=== PATIENT | female | born 1960 | race Caucasian/White ===

== ENCOUNTER 2017-07-29 13:23 | Outpatient (CLI) | payer OTHER | END 2017-07-29 13:24 | disposition home or self-care (01) | LOC: BICMAMMO 13:23 | PROVIDERS: ATTEND Family Medicine | DX: N64.52 Nipple discharge (principal); R92.1 Mammographic calcification found on diagnostic imaging of breast | CPT/HCPCS: G0279 ==

== ENCOUNTER 2017-12-17 15:15 | Outpatient (CLI) | payer OTHER ==
[2017-12-17 16:24] LABS: #Eosinphils 0.1 thou/uL (0.0-0.7); #Monocytes 0.5 thou/uL (0.11-0.59); #Neutrophils 5.2 thou/uL (1.40-6.50); %Basophils 0.3 % (0.0-1.0); %Eosinophils 1.9 % (0.0-10.0); %Lymphocytes 25.7 % (21.0-51.0); %Neutrophils 66.1 % (42.0-75.0); Mean Corpuscular HGB CONC 33.7 g/dL (32.0-36.0); Mean Corpuscular Volume 85.9 fL (78.0-98.0); Mean Platelet Volume 7.2 fL (7.4-10.4); Platelet Count 446 thou/uL (130-400); Red Blood Cell (RBC) Count 4.83 mill/uL (4.20-5.40); White Blood Cell (WBC) Count 7.9 thou/uL (4.8-10.8)
[2017-12-17 16:44] LABS: Anion Gap 14 mmol/L (10-20); BUN (Urea Nitrogen) 15 mg/dL (9.8-20.1); Calc. Creatinine Clearance 0 mL/min (70-130); Calcium 10.1 mg/dL (7.8-10.44); Carbon Dioxide 25 mmol/L (22-29); Chloride 104 mmol/L (98-107); Estimated GFR-MDRD 80; Glucose 108 mg/dL (70-105); Potassium 4.3 mmol/L (3.5-5.1); Sodium 139 mmol/L (136-145)
== END 2017-12-17 15:16 | disposition home or self-care (01) ==
LOC: LABBT 15:15
PROVIDERS: ATTEND Specialist
DX: Z01.812 Encounter for preprocedural laboratory examination (principal); N64.52 Nipple discharge
CPT/HCPCS: 80048; 85025; 93005; 93010

== ENCOUNTER 2017-12-18 06:34 | Day surgery (SDC) | payer OTHER ==
[2017-12-17 15:41] VITALS: BMI 32.2
[2017-12-18] MEDS ORDERED: CEFAZOLIN/Water 2 GM/20 ML SYRINGE ONE (07:17)
[2017-12-18] MEDS ORDERED: Ketorolac Tromethamine 30 MG/ML VIAL ONE (07:17)
[2017-12-18] MEDS ORDERED: Bupivacaine/Epinephrine 0.25% 30 ML VIAL ONE (08:38)
[2017-12-18] MEDS ORDERED: Fentanyl 100 MCG/2 ML VIAL ONE (08:40)
[2017-12-18] MEDS ORDERED: HYDROcodone/Acetaminophen 5/325 mg Tablet ONE (11:09)
[2017-12-18] MEDS ORDERED: PROPOFOL 200 MG/20 ML VIAL ONE (14:11)
--- NOTE | 2017-12-19 10:18 | OP ---
DATE OF PROCEDURE: 12/18/2017 PREOPERATIVE DIAGNOSIS: Persistent left breast nipple discharge. POSTOPERATIVE DIAGNOSIS: Persistent left breast nipple discharge. PROCEDURE PERFORMED: Left breast ductal excision. SURGEON: Anthony Henriquez M.D. ANESTHESIA: General with laryngeal mask airway. INDICATIONS: The patient is a 57-year-old white female. She presents with a long history of persist ent left nipple discharge. After undergoing appropriate period of observation, she has elected to pr oceed with ductal excision to evaluate for the source of this as well as to stop the persistent disch arge. PROCEDURE IN DETAIL: Informed consent was obtained. The patient was taken to the operating room whe re general anesthesia was obtained with the patient in supine position. The left breast was prepped with ChloraPrep and draped in sterile fashion. Gentle pressure around the nipple produced discharge from an obvious duct at about the 12 o'clock radian of the nipple. This was visualized and cannulate d with an Angiocath and infiltrated with a small amount of dilute methylene blue. A lacrimal duct probe was then placed within the same duct, but it could not be advanced more than a centimeter or two. A curvilinear periareolar incision was created at the superior aspect of the areo la. Dissection was carried through skin and subcutaneous tissue. Dissection was then carried superi chavo to identify the ductal tissue at the posterior aspect of the nipple. I was able to identify and clamp the tissue into which the lacrimal duct probe entered. I then dissected this down into the br east and removed a conical shape segment of tissue at the superior aspect of the nipple as it extende d into the breast. This was tagged for orientation and submitted to pathology. I then dissected up underneath the nipple to identify the duct. As this was dissected up, a small we dge of nipple skin was removed in continuity with the duct. The separate specimen was submitted as w ell. Meticulous hemostasis was obtained within the wound. Additional local anesthetic was infiltrated. T he skin defect in the nipple was closed with a series of interrupted sutures of 4-0 Monocryl. The ex cisional wound was then closed in layers with 3-0 and 4-0 Monocryl. Dermabond was placed both over t he nipple and the skin incision. There were no complications. Blood loss was negligible. The patie nt tolerated the procedure well and was taken to recovery room in stable condition.
== END 2017-12-18 12:04 | disposition home or self-care (01) ==
LOC: SDC 06:34
PROVIDERS: ATTEND Specialist
PROC: 0HBU0ZX Excision of Left Breast, Open Approach, Diagnostic (ICD-10-PCS; principal; 2017-12-18)
DX: N60.32 Fibrosclerosis of left breast (principal); E11.9 Type 2 diabetes mellitus without complications; Z79.82 Long term (current) use of aspirin; Z79.84 Long term (current) use of oral hypoglycemic drugs; Z79.899 Other long term (current) drug therapy; Z91.048 Other nonmedicinal substance allergy status
CPT/HCPCS: 80048; 85025; 88305; 88307; 93005; 93010; J0131; J1885; J2704; J3010; Q9968

== ENCOUNTER 2018-09-08 15:10 | Outpatient (CLI) | payer OTHER ==
--- NOTE | 2018-09-08 16:28 | MMO ---
Bilateral MAMMO Bilat Screen [facility]. CLINICAL HISTORY: Patient is 58 years old and is seen for screening. The patient has no family history of breast cancer. The patient has no personal history of cancer. VIEWS: The views performed were: bilateral craniocaudal with tomosynthesis and bilateral mediolateral oblique with tomosynthesis. FILMS COMPARED: The present examination has been compared to prior imaging studies performed at [facility] on 11/18/2014, 12/01/2015, 12/09/2016 and 07/29/2017. MAMMOGRAM FINDINGS: The breasts are almost entirely fat. There are no suspicious masses, calcifications or areas of architectural distortion. There are benign appearing calcifications in the right breast. There are no suspicious masses, suspicious calcifications, or new areas of architectural distortion. IMPRESSION: THERE IS NO MAMMOGRAPHIC EVIDENCE OF MALIGNANCY. A ROUTINE FOLLOW-UP MAMMOGRAM IN 1 YEAR IS RECOMMENDED. THE RESULTS OF THIS EXAM WERE SENT TO THE PATIENT. ACR BI-RADS Category 2 - Benign finding MAMMOGRAPHY NOTE: 1. A negative mammogram report should not delay a biopsy if a dominant of clinically suspicious mass is present. 2. Approximately 10% to 15% of breast cancers are not detected by mammography. 3. Adenosis and dense breasts may obscure an underlying neoplasm.
== END 2018-09-08 15:11 | disposition home or self-care (01) ==
LOC: BICMAMMO 15:10
PROVIDERS: ATTEND Specialist
DX: Z12.31 Encounter for screening mammogram for malignant neoplasm of breast (principal)
CPT/HCPCS: 77063; 77067

== ENCOUNTER 2020-02-24 14:07 | Outpatient (CLI) | payer OTHER ==
--- NOTE | 2020-02-24 15:46 | MMO ---
Bilateral MAMMO Bilat Screen [facility]. CLINICAL HISTORY: Patient is 59 years old and is seen for screening. The patient has no family history of breast cancer. The patient has no personal history of cancer. The patient has a history of left needle biopsy in 2019 - benign and left OTHER in 2018 - DUCTAL INCISION. VIEWS: The views performed were: bilateral craniocaudal with tomosynthesis and bilateral mediolateral oblique with tomosynthesis. FILMS COMPARED: The present examination has been compared to prior imaging studies performed at [facility] on 12/01/2015, 12/09/2016, 07/29/2017 and 09/08/2018. This study has been interpreted with the assistance of computer-aided detection. MAMMOGRAM FINDINGS: The breasts are almost entirely fat. There are benign appearing calcifications in the right breast. There are no suspicious masses, suspicious calcifications, or new areas of architectural distortion. IMPRESSION: THERE IS NO MAMMOGRAPHIC EVIDENCE OF MALIGNANCY. A ROUTINE FOLLOW-UP MAMMOGRAM IN 1 YEAR IS RECOMMENDED. THE RESULTS OF THIS EXAM WERE SENT TO THE PATIENT. ACR BI-RADS Category 2 - Benign finding MAMMOGRAPHY NOTE: 1. A negative mammogram report should not delay a biopsy if a dominant of clinically suspicious mass is present. 2. Approximately 10% to 15% of breast cancers are not detected by mammography. 3. Adenosis and dense breasts may obscure an underlying neoplasm. Reported by: AUBREY CANNON MD Electonically Signed: [id number]
== END 2020-02-24 14:08 | disposition home or self-care (01) ==
LOC: BICMAMMO 14:07
PROVIDERS: ATTEND Family Medicine
DX: Z12.31 Encounter for screening mammogram for malignant neoplasm of breast (principal); Z98.890 Other specified postprocedural states
CPT/HCPCS: 77063; 77067

== ENCOUNTER 2021-10-16 13:25 | Outpatient (CLI) | payer OTHER | END 2021-10-16 13:26 | disposition home or self-care (01) | LOC: BICMAMMO 13:25 | PROVIDERS: ATTEND Family Medicine | DX: Z12.31 Encounter for screening mammogram for malignant neoplasm of breast (principal); Z91.89 Other specified personal risk factors, not elsewhere classified | CPT/HCPCS: 77063; 77067 ==

== ENCOUNTER 2023-10-30 13:38 | Outpatient (CLI) | payer BC | END 2023-10-30 13:39 | disposition home or self-care (01) | LOC: BICMAMMO 13:38 | PROVIDERS: ATTEND Family Medicine | DX: Z12.31 Encounter for screening mammogram for malignant neoplasm of breast (principal); Z91.89 Other specified personal risk factors, not elsewhere classified | CPT/HCPCS: 77063; 77067 ==